=== PATIENT | female | born 1985 | race Two or more races ===

== ENCOUNTER 2020-10-10 12:20 | Emergency (ER) | payer OTHER ==
[~2020-10-10] VITALS: Ht 167.6 cm; Wt 86.2 kg
[2020-10-10 12:37] VITALS: BP 129/72
[2020-10-10] MEDS ORDERED: CIPR7.5D EACH EAR (12:51)
== END 2020-10-10 13:02 | disposition home or self-care (01) ==
LOC: ER 12:22
DX: H60.92 Unspecified otitis externa, left ear (principal); Z79.899 Other long term (current) drug therapy